=== PATIENT | female | born 1940 | race Caucasian/White ===

== ENCOUNTER 2017-06-23 12:51 | Emergency (ER) | payer MEDICARE, OTHER ==
[~2017-06-23] VITALS: Ht 162.6 cm; Wt 72.0 kg
[~2017-06-23 12:51] MED LIST: ALPR-138 PO; ARIC10TA PO; CALC500T19 PO; FURO20 PO; MACR100C PO; MELO7.5 PO; PRIL20CA PO; PROP20TA24 PO; ROSU10 PO; TOLT4 PO
[2017-06-23 13:47] VITALS: BP 152/65; PULSE 57; RESP 18; TEMP 98; O2SAT 99
[2017-06-23 15:22] LABS: AUTOMATED NEUTROPHIL # 4.4 TH/MM3 (1.8-7.7); BASOPHIL # 0.1 TH/MM3 (0-0.2); BASOPHIL % 0.9 % (0.0-2.0); EOSINOPHIL # 0.3 TH/MM3 (0-0.4); EOSINOPHIL % 4.2 % (0.0-4.0); HEMATOCRIT 32.2 % (35.0-46.0); HEMOGLOBIN 11.1 GM/DL (11.6-15.3); LYMPH % 20.6 % (9.0-44.0); LYMPHOCYTE # 1.3 TH/MM3 (1.0-4.8); MEAN CELL VOLUME 89.7 FL (80.0-100.0); MEAN CORPUSCULAR HEMOGLOBIN 30.8 PG (27.0-34.0); MEAN CORPUSCULAR HGB CONC 34.4 % (32.0-36.0); MEAN PLATELET VOLUME 9.6 FL (7.0-11.0); MONO % 7.1 % (0.0-8.0); MONOCYTE # 0.5 TH/MM3 (0-0.9); NEUT % 67.2 % (16.0-70.0); PLATELET COUNT 185 TH/MM3 (150-450); RED BLOOD COUNT 3.59 MIL/MM3 (4.00-5.30); RED CELL DISTRIBUTION WIDTH 13.4 % (11.6-17.2); WHITE BLOOD COUNT 6.5 TH/MM3 (4.0-11.0)
[2017-06-23 15:44] LABS: ALBUMIN 3.6 GM/DL (3.4-5.0); AST (GOT) 18 U/L (15-37); BICARBONATE 29.6 MEQ/L (21.0-32.0); BLOOD UREA NITROGEN 31 MG/DL (7-18); CALCIUM 9.4 MG/DL (8.5-10.1); CHLORIDE 105 MEQ/L (98-107); GLOMERULAR FILTRATION RATE 26 ML/MIN (>89); GLUCOSE,RANDOM 112 MG/DL (74-106); SODIUM (NA) 141 MEQ/L (136-145)
[2017-06-23 15:48] LABS: ALKALINE PHOSPHATASE 64 U/L (45-117); ALT (GPT) 23 U/L (10-53); TOTAL BILIRUBIN ADULT 0.4 MG/DL (0.2-1.0); TOTAL PROTEIN 7.3 GM/DL (6.4-8.2)
--- NOTE | 2017-06-23 16:13 | PD ---
HPI Chief Complaint: Diabetic Time Seen by Provider: 15:37 Travel History International Travel<30 days: No Contact w/Intl Traveler<30days: No Traveled to known affect area: No History of Present Illness HPI Patient brought into the emergency department by her daughter for memory loss short-term and long-term (approximately 1 year), lower extremity edema, and poorly controlled blood sugars (low 200s). States that mom has not been compliant with her diet and has had difficulty controlling her sugars. Lower extremity edema is bilaterally and has been intermittent for the past few weeks. She denies fever, chills, nausea, vomiting, chest pain, shortness of breath, abdominal pain, dysuria, headache. She does report a 10 pound weight gain over the past 2 weeks. PFSH Past Medical History Anxiety: Yes (ANXIETY ATTACKS) Cancer: Yes (BREAST CANCER 1996) Cardiovascular Problems: Yes High Cholesterol: Yes Diabetes: Yes (BORDERLINE) Diminished Hearing: No Hypertension: Yes Musculoskeletal: Yes (CHRONIC BACK PAIN, BULGING L5) Immunizations Current: No ?: Not Menopausal: Yes Tubal Ligation: Yes (1974) Past Surgical History Appendectomy: Yes (1957) Cardiac Surgery: Yes ( RIGHT ENDERECTOMY 2001) Eye Surgery: Yes (CATARACT SURGERY 2001) Gynecologic Surgery: Yes (Tubal ligation) Mastectomy: Yes Family History Narrative Family History Diabetes, coronary artery disease Social History Alcohol Use: Yes (1 GLASS COUPLE TIMES A WEEK) Tobacco Use: No (quit approximately 20 years ago) Substance Use: No Allergies-Medications (Allergen,Severity, Reaction): Coded Allergies: levofloxacin (Unverified Allergy, Severe, BLACK URINE, 06/23/17) Reported Meds & Prescriptions Reported Meds & Active Scripts Active Macrobid (Nitrofurantoin Macrocrystals) 100 Mg Cap 100 Mg PO BID 10 Days Reported Lasix 20 Mg Tab (Furosemide) 20 Mg Tab 20 Mg PO DAILY PRN Detrol LA 4 mg (Tolterodine Tartrate) 4 Mg Cap 4 Mg PO DAILY Mobic 7.5 Mg Tab (Meloxicam) 7.5 Mg Tab 7.5 Mg PO DAILY Crestor (Rosuvastatin Calcium) 10 Mg Tab 10 Mg PO HS Prilosec 20 mg (Omeprazole) 20 Mg Cap 20 Mg PO DAILY Aricept (Donepezil HCl) 10 Mg Tab 10 Mg PO DAILY Calcium 500 Mg Tab 500 Mg PO DAILY Inderal (Propranolol HCl) 20 Mg Tab 20 Mg PO BID Xanax (Alprazolam) 0.25 Mg Tab 0.25 Mg PO HS PRN Review of Systems Except as stated in HPI: all other systems reviewed are Neg Physical Exam Narrative GENERAL: [-] No acute distress, resting comfortably. SKIN: Focused skin assessment warm/dry. HEAD: Atraumatic. Normocephalic. EYES: Extraocular muscles intact bilaterally. No scleral icterus. No injection or drainage. ENT: No nasal bleeding or discharge. Mucous membranes pink and moist. NECK: Trachea midline. No JVD. Supple, full range of motion. CARDIOVASCULAR: Regular rate and rhythm. No murmur appreciated. RESPIRATORY: No accessory muscle use. Clear to auscultation. Breath sounds equal bilaterally. GASTROINTESTINAL: Abdomen soft, non-tender, nondistended. Hepatic and splenic margins not palpable. MUSCULOSKELETAL: No obvious deformities. No clubbing. No cyanosis. No edema. NEUROLOGICAL: Awake and alert. No obvious cranial nerve deficits. Motor grossly within normal limits. Normal speech. PSYCHIATRIC: Appropriate mood and affect; insight and judgment normal. Oriented to person, place, and time. Data Data Last Documented VS Vital Signs Date Time Temp Pulse Resp B/P (MAP) Pulse Ox O2 Delivery O2 Flow Rate FiO2 06/23/17 16:40 70 16 06/23/17 16:32 166/73 (104) 98 Room Air 06/23/17 13:47 98.0 Orders Orders Complete Blood Count With Diff (06/23/17 13:50) Blood Glucose (06/23/17 13:50) Comprehensive Metabolic Panel (06/23/17 13:50) Iv Access Insert/Monitor (06/23/17 13:50) Comprehensive Metabolic Panel (06/23/17 15:54) B-Type Natriuretic Peptide (06/23/17 15:54) Act Partial Throm Time (Ptt) (06/23/17 15:54) Prothrombin Time / Inr (Pt) (06/23/17 15:54) Magnesium (Mg) (06/23/17 15:54) Ckmb (Isoenzyme) Profile (06/23/17 15:54) Troponin I (06/23/17 15:54) Urinalysis - C+S If Indicated (06/23/17 15:54) Electrocardiogram (06/23/17 15:54) Ecg Monitoring (06/23/17 15:54) Oximetry (06/23/17 15:54) Chest, Single Ap (06/23/17 15:54) Ct Brain W/O Iv Contrast(Rout) (06/23/17 ) Phosphorus (Po4) (06/23/17 16:31) CKMB (06/23/17 16:45) CKMB% (06/23/17 16:45) Labs Laboratory Tests Test 06/23/17 14:12 06/23/17 16:45 06/23/17 17:35 06/23/17 18:21 White Blood Count 6.5 TH/MM3 Red Blood Count 3.59 MIL/MM3 Hemoglobin 11.1 GM/DL Hematocrit 32.2 % Mean Corpuscular Volume 89.7 FL Mean Corpuscular Hemoglobin 30.8 PG Mean Corpuscular Hemoglobin Concent 34.4 % Red Cell Distribution Width 13.4 % Platelet Count 185 TH/MM3 Mean Platelet Volume 9.6 FL Neutrophils (%) (Auto) 67.2 % Lymphocytes (%) (Auto) 20.6 % Monocytes (%) (Auto) 7.1 % Eosinophils (%) (Auto) 4.2 % Basophils (%) (Auto) 0.9 % Neutrophils # (Auto) 4.4 TH/MM3 Lymphocytes # (Auto) 1.3 TH/MM3 Monocytes # (Auto) 0.5 TH/MM3 Eosinophils # (Auto) 0.3 TH/MM3 Basophils # (Auto) 0.1 TH/MM3 CBC Comment DIFF FINAL Differential Comment Blood Urea Nitrogen 31 MG/DL 31 MG/DL Creatinine 1.90 MG/DL 1.89 MG/DL Random Glucose 112 MG/DL 102 MG/DL Total Protein 7.3 GM/DL 7.3 GM/DL Albumin 3.6 GM/DL 3.7 GM/DL Calcium Level 9.4 MG/DL 9.5 MG/DL Alkaline Phosphatase 64 U/L 61 U/L Aspartate Amino Transf (AST/SGOT) 18 U/L 25 U/L Alanine Aminotransferase (ALT/SGPT) 23 U/L 19 U/L Total Bilirubin 0.4 MG/DL 0.5 MG/DL Sodium Level 141 MEQ/L 138 MEQ/L Potassium Level 4.3 MEQ/L 4.4 MEQ/L Chloride Level 105 MEQ/L 104 MEQ/L Carbon Dioxide Level 29.6 MEQ/L 30.1 MEQ/L Anion Gap 6 MEQ/L 4 MEQ/L Estimat Glomerular Filtration Rate 26 ML/MIN 26 ML/MIN Magnesium Level 2.0 MG/DL Total Creatine Kinase 136 U/L Creatine Kinase MB 1.2 NG/ML Troponin I LESS THAN 0.02 NG/ML B-Type Natriuretic Peptide 100 PG/ML Prothrombin Time 10.1 SEC Prothromb Time International Ratio 1.0 RATIO Activated Partial Thromboplast Time 22.4 SEC Urine Color YELLOW Urine Turbidity CLEAR Urine pH 7.0 Urine Specific [place] 1.012 Urine Protein NEG mg/dL Urine Glucose (UA) NEG mg/dL Urine Ketones NEG mg/dL Urine Occult Blood NEG Urine Nitrite NEG Urine Bilirubin NEG Urine Urobilinogen LESS THAN 2.0 MG/DL Urine Leukocyte Esterase SMALL Urine RBC 1 /hpf Urine WBC 5 /hpf Urine Squamous Epithelial Cells 3 /hpf Urine Amorphous Sediment RARE Urine Bacteria RARE /hpf Microscopic Urinalysis Comment CULT NOT INDICATED MDM Medical Decision Making Medical Screen Exam Complete: Yes Emergency Medical Condition: Yes Interpretation(s) CXR: FINDINGS: Portable AP view of the chest demonstrates a normal-sized cardiac silhouette with calcification of the aorta. There is a linear opacity in the left midlung zone with mild atelectasis at the left lung base. EKG lines overlie the patient. No pleural effusion, airspace consolidation, or pneumothorax is visualized. Innumerable surgical clips overlie the left axilla. CONCLUSION: Linear atelectasis versus scar in the left midlung zone. Otherwise, no acute finding is identified to explain the shortness of breath. ECG: Sinus anayeli at 51, normal intervals, TWI in V1 CT head: FINDINGS: CEREBRUM: Mild cerebral atrophy is noted. Mild periventricular and subcortical white matter small vessel ischemic changes are noted bilaterally. No evidence of midline shift, mass lesion, hemorrhage or acute infarction. No extra-axial fluid collections are seen. POSTERIOR FOSSA: The cerebellum and brainstem are intact. The 4th ventricle is midline. The cerebellopontine angle is unremarkable. EXTRACRANIAL: The visualized portion of the orbits is intact. SKULL: The calvaria is intact. No evidence of skull fracture. CONCLUSION: 1. Mild periventricular and subcortical white matter small vessel ischemic changes bilaterally. 2. Mild cerebral atrophy. 3. No acute infarct or acute hemorrhage, mass effect or extra-axial fluid collections. Differential Diagnosis Kidney disease, ACS, CHF, kidney disease, infection (UTI), progressive dementia, Narrative Course Patient presents to ER with memory loss, c/o intermittent bilat LE edema, and uncontrollable blood sugars. Glucose 102-112, worsening renal function, slight decrease in Hgb/HCT, no LE edema on my exam, head CT negative. Attempted to admit patient to hospital, but hospitals[facility] advised she does not meet admit criteria. She should f/u with PCP instead. She states that she doesn't have a PCP, but she doesn't like doctors. She uses [facility]. A service that comes out monthly and checks labs. When asked what the plan was for her kidney disease based on results, she did not know. I called [facility] but there was no answering service taking after hour calls. She has been advised to followup with a PCP for further eval and management. Physician Communication Physician Communication Spoke to hospitalist continuous process machine operator: Patient aleena navarrete meet admission criteria. Needs primary care followup. Diagnosis Primary Impression: Renal failure Qualified Codes: N18.9 - Chronic kidney disease, unspecified Referrals: Debo Clark MD Additional Instructions: 1. Followup with Dr. Clark 2. Return to ER immediately for fever, vomitjng, chest pain, shortness of breath, or for any new/worrisome.worsening symptoms. Disposition: 01 DISCHARGE HOME Condition: Stable Olya Menon MD Jun 23, 2017 16:13
--- NOTE | 2017-06-23 16:29 | RADRPT ---
EXAM DATE/TIME: 06/23/2017 15:58 [facility] COMPARISON: No previous studies available for comparison. INDICATIONS : Short of breath. MEDICAL HISTORY : Diabetes mellitus type I. SURGICAL HISTORY : Mastectomy, bilateral. ENCOUNTER: Initial ACUITY: 1 day PAIN SCORE: 0/10 LOCATION: Bilateral chest FINDINGS: Portable AP view of the chest demonstrates a normal-sized cardiac silhouette with calcification of th e aorta. There is a linear opacity in the left midlung zone with mild atelectasis at the left lung ba se. EKG lines overlie the patient. No pleural effusion, airspace consolidation, or pneumothorax is vi sualized. Innumerable surgical clips overlie the left axilla. CONCLUSION: Linear atelectasis versus scar in the left midlung zone. Otherwise, no acute finding is identified to explain the shortness of breath. Anoop Boyce MD on June 23, 2017 at 16:24 Board Certified Radiologist. This report was verified electronically.
[2017-06-23 16:32] VITALS: BP 166/73; PULSE 56; RESP 16; O2SAT 98
--- NOTE | 2017-06-23 17:21 | RADRPT ---
EXAM DATE/TIME: 06/23/2017 17:01 [facility] COMPARISON: No previous studies available for comparison. INDICATIONS : Fatigue, generalized weakness, short-term memory loss. RADIATION DOSE: 36.13 CTDIvol (mGy) MEDICAL HISTORY : Carcinoma, breast. Diabetes mellitus type 2. Hypertension. SURGICAL HISTORY : Appendectomy. Tubal ligation. ENCOUNTER: Initial ACUITY: 4 - 6 days PAIN SCALE: 0/10 LOCATION: Bilateral cranial TECHNIQUE: Multiple contiguous axial images were obtained of the head. Using automated exposure control and adj ustment of the mA and/or kV according to patient size, radiation dose was kept as low as reasonably a chievable to obtain optimal diagnostic quality images. DICOM format image data is available electro nically for review and comparison. FINDINGS: CEREBRUM: Mild cerebral atrophy is noted. Mild periventricular and subcortical white matter small vessel ischem ic changes are noted bilaterally. No evidence of midline shift, mass lesion, hemorrhage or acute infa rction. No extra-axial fluid collections are seen. POSTERIOR FOSSA: The cerebellum and brainstem are intact. The 4th ventricle is midline. The cerebellopontine angle i s unremarkable. EXTRACRANIAL: The visualized portion of the orbits is intact. SKULL: The calvaria is intact. No evidence of skull fracture. CONCLUSION: 1. Mild periventricular and subcortical white matter small vessel ischemic changes bilaterally. 2. Mild cerebral atrophy. 3. No acute infarct or acute hemorrhage, mass effect or extra-axial fluid collections. Bhupinder West MD on June 23, 2017 at 17:17 Board Certified Radiologist. This report was verified electronically.
[2017-06-23 17:25] LABS: ALT (GPT) 19 U/L (10-53)
[2017-06-23 17:27] LABS: ALBUMIN 3.7 GM/DL (3.4-5.0); AST (GOT) 25 U/L (15-37); BICARBONATE 30.1 MEQ/L (21.0-32.0); BLOOD UREA NITROGEN 31 MG/DL (7-18); CALCIUM 9.5 MG/DL (8.5-10.1); CHLORIDE 104 MEQ/L (98-107); CREATININE 1.89 MG/DL (0.50-1.00); GLOMERULAR FILTRATION RATE 26 ML/MIN (>89); GLUCOSE,RANDOM 102 MG/DL (74-106); SODIUM (NA) 138 MEQ/L (136-145)
[2017-06-23 17:29] LABS: ALKALINE PHOSPHATASE 61 U/L (45-117); TOTAL BILIRUBIN ADULT 0.5 MG/DL (0.2-1.0); TOTAL PROTEIN 7.3 GM/DL (6.4-8.2); TROPONIN I LESS THAN 0.02 NG/ML (0.02-0.05)
[2017-06-23 18:37] LABS: PROTHROMBIN TIME - PATIENT 10.1 SEC (9.8-11.6)
[2017-06-23 18:41] LABS: AMORPHOUS SEDIMENT, URINE RARE; BACTERIA, URINE RARE /hpf; BILIRUBIN, URINE NEG (NEG); BLOOD, URINE NEG (NEG); GLUCOSE,URINE NEG (NEG); KETONE, URINE NEG (NEG); NITRITE,URINE NEG (NEG); SQUAMOUS EPITHELIAL CELL URINE 3 /hpf (0-5); URINE COLOR YELLOW (YELLW/STRAW); URINE LEUKOCYTE ESTERASE SMALL (NEG)
--- NOTE | 2017-06-25 10:58 | EKG ---
Date Performed: 06/23/2017 Time Performed: 16:39:56 PTAGE: 77 years EKG: SINUS BRADYCARDIA BORDERLINE ECG Sinus rate is slower, otherwise no change from prior. PREVIOUS TRACING : 12/29/2012 12.07 DOCTOR: Thom Mayes Interpretating Date/Time 06/25/2017 10:58:03
== END 2017-06-23 20:05 | disposition home or self-care (01) ==
LOC: NEPE 12:51
DX: I12.9 Hypertensive chronic kidney disease with stage 1 through stage 4 chronic kidney disease, or unspecified chronic kidney disease (principal); R60.0 Localized edema; R94.31 Abnormal electrocardiogram [ECG] [EKG]; E11.22 Type 2 diabetes mellitus with diabetic chronic kidney disease; E78.00 Pure hypercholesterolemia, unspecified
CPT/HCPCS: 70450; 71045; 80053; 81001; 82550; 82552; 83735; 83880; 84100; 84484; 85025; 85610; 85730; 93005; 99285